=== PATIENT | female | born 1955 | race Hispanic/Latino ===

== ENCOUNTER 2023-01-29 11:02 | Outpatient (CLI) | payer OTHER ==
[2023-01-29 12:25] LABS: SARS-CoV-2 NAA Rapid Test Not Detected (NotDetected)
== END 2023-01-29 11:03 | disposition home or self-care (01) ==
LOC: LABBT 11:02
PROVIDERS: ATTEND Neurological Surgery
DX: Z01.810 Encounter for preprocedural cardiovascular examination (principal); M43.16 Spondylolisthesis, lumbar region; Z20.822 Contact with and (suspected) exposure to COVID-19
CPT/HCPCS: 93005; U0002; 93010